=== PATIENT | male | born 1965 | race Caucasian/White ===

== ENCOUNTER 2019-10-02 10:23 | Emergency (ER) | payer SELFPAY ==
[~2019-10-02] VITALS: Ht 167.6 cm; Wt 86.0 kg
[2019-10-02 14:35] VITALS: BP 143/93
== END 2019-10-02 15:36 | disposition home or self-care (01) ==
LOC: ER 10:29
DX: F41.1 Generalized anxiety disorder (principal); R06.00 Dyspnea, unspecified; F10.129 Alcohol abuse with intoxication, unspecified; Y90.9 Presence of alcohol in blood, level not specified
CPT/HCPCS: 71045; 82962; 93005; 99285

== ENCOUNTER 2019-10-03 16:00 | Emergency (ER) | payer SELFPAY | END 2019-10-03 17:23 | disposition left against medical advice (07) | LOC: ER 16:00 | DX: Z53.21 Procedure and treatment not carried out due to patient leaving prior to being seen by health care provider (principal) ==